=== PATIENT | female | born 1995 | race Caucasian/White ===

== ENCOUNTER 2017-03-29 14:02 | Inpatient (IN) | payer BC ==
[~2017-03-29] VITALS: Ht 160 cm; Wt 79.4 kg
--- NOTE | ~2017-03-29 | O ---
[place], [place] OPERATIVE NOTE NAME: IVETTE SARAH UNIT #: [id number] ROOM: 526 DOCTOR: GALEN SMYTH MD BIRTHDATE: [birth year] DOS: 03/30/2017 PREOPERATIVE DIAGNOSIS: Acute appendicitis. POSTOPERATIVE DIAGNOSIS: Acute appendicitis. PROCEDURE: Laparoscopic appendectomy. SURGEON: Galen Smyth MD JOURNEYMAN MACHINIST: MS3. ANESTHESIA: General anesthesia with endotracheal intubation. INDICATIONS: This is a 21-year-old female who presented to the Emergency Room with abdominal pain and a CAT scan that showed acute appendicitis. It was decided to take the patient to the operating room for a laparoscopic possible open appendectomy. The procedure and its complications were explained to the patient in detail preoperatively. Complications that were discussed included but were not limited to bleeding, infection, hematoma/seroma/abscess formation, damage to underlying vital structures, incisional hernia formation and prolonged pain. She agreed to proceed. DESCRIPTION OF PROCEDURE: After identifying the patient, the patient was brought to the operating suite and laid in the supine position. After time-out procedure was called, Perrin catheter was inserted into the urinary bladder. The parts were then painted and draped in the usual sterile fashion. The left upper extremity was tucked to the patient's side. An incision was made below the umbilicus in a curvilinear fashion. The skin and the subcutaneous tissue were incised and the fascia was incised vertically. The peritoneum was opened and a 12 mm Rodney port was introduced into the peritoneal cavity. A pneumoperitoneum was created. Under direct vision, a left lower quadrant and suprapubic incision was made and appropriate sized ports were introduced. The patient was placed in a Trendelenburg, right side up position. The appendix was found to be encased within the omentum and this was away from the appendix with the help of blunt dissection. After careful dissection was completed, the appendix was stapled across with the help of an Endo BERTO/vascular stapler and the appendix was then placed in an EndoCatch bag and removed from the peritoneal cavity and sent for histopathological diagnosis. Thereafter, hemostasis was confirmed. Fluid around the pelvis was sucked away and again hemostasis was confirmed. After that was done, the suprapubic and the left lower quadrant ports were removed under direct vision and there was no bleeding seen. The umbilical port was also removed. Thereafter, the fascial suture was taken with the help of 0 Vicryl and the skin edges were infiltrated with 1% plain lidocaine and approximated with the help of 4-0 Vicryl in a subcuticular running fashion. The Perrin catheter was removed. Dressings were placed and the patient was extubated uneventfully and brought back to the recovery room in stable fashion. There were no complications. Dr. Galen Smyth, the attending surgeon, was present throughout the operating case. [place], [place] OPERATIVE NOTE NAME: IVETTE SARAH UNIT #: [id number] ROOM: 526 DOCTOR: GALEN SMYTH MD BIRTHDATE: [birth year] Galen Smyth MD CM:OPRECORD:OPERATIVE NOTE [id number] GALEN SMYTH MD 03/30/17 0921 interface
[2017-03-29 14:32] VITALS: BP 136/68
[2017-03-29 15:32] LABS: BASO % 0.2 % (0.0-1.0); HEMOGLOBIN 13.7 g/dl (12.0-16.0); LYMPH # 2.5 10*3/uL (1.3-4.4); LYMPH % 12.9 % (27.0-41.0); MEAN CELL VOLUME 85.1 fl (81.0-99.0); MEAN CORPUSCULAR HGB 28.4 pg (27.0-31.0); MEAN CORPUSCULAR HGB CONC 33.4 g/dl (33.0-37.0); MEAN PLATELET VOLUME 10.2 fl (9.6-12.3); MONO # 1.1 10*3/uL (0.1-1.0); MONO % 5.9 % (3.0-9.0); NEUT # 15.4 10*3/uL (2.3-7.9); NEUT % 80.6 % (47.0-73.0); PLATELET COUNT AUTOMATED 306 10*3/uL (130-400); RED BLOOD COUNT 4.82 10*6/uL (4.10-5.10); RED CELL DISTRI WIDTH 12.2 % (0-14.5)
[2017-03-29 15:42] LABS: ACT PARTIAL THROMBO TIME 22.5 SECONDS (20.8-31.5)
[2017-03-29 15:47] LABS: ALBUMIN 3.5 gm/dl (3.1-4.5); ALKALINE PHOSPHATASE 67 U/L (45-117); BETA-HCG, QUANT < 1.0 mIU/mL (1-3); BUN 10 mg/dl (7-24); CHLORIDE 99 mmol/L (98-107); CREATININE 0.67 mg/dL (0.55-1.02); LIPASE 126 U/L (73-393); POTASSIUM 3.9 mmol/L (3.5-5.1); SGOT/AST 10 IU/L (3-35); SGPT/ALT 16 U/L (12-78); SODIUM 135 mmol/L (136-145); TOTAL PROTEIN 8.5 gm/dL (6.4-8.2); TROPONIN I < 0.015 ng/ml (<0.045)
[2017-03-29 16:00] VITALS: BP 139/72
--- NOTE | 2017-03-29 16:33 | NUR ---
PAIN NEARLY RESOLVED NOW AFTER DILAUDID DOSING.
[2017-03-29 16:50] LABS: BILIRUBIN NEGATIVE (NEGATIVE); BLOOD NEGATIVE (NEGATIVE); CLARITY CLOUDY (CLEAR); COLOR YELLOW (YELLOW); GLUCOSE NEGATIVE (NEGATIVE); KETONE 2+ (NEGATIVE); LEUKO ESTERASE NEGATIVE (NEGATIVE); NITRITE NEGATIVE (NEGATIVE); SPECIFIC GRAVITY >= 1.030 (1.005-1.030); UROBILINOGEN 0.2 E.U./dl (0.2-1.0)
[2017-03-29 17:20] LABS: BACTERIA 2+; EPITHELIAL CELLS 16-20; MUCOUS TRACE; RBC 0-2 rbc/hpf (0-2)
--- NOTE | 2017-03-29 18:00 | NUR ---
PAIN RETURNS, NEW PAIN MED ORDER PENDING.
--- NOTE | 2017-03-29 18:02 | NUR ---
BRITTANY STOP TIME WILL BE 7953
--- NOTE | 2017-03-29 18:20 | NUR ---
DILAUDID 1MG DOSE STOP TIME IS NOW
[2017-03-29 18:30] VITALS: BP 139/72
--- NOTE | 2017-03-29 18:37 | NUR ---
BED ASSIGNED 526. AWAITING OPPORTUNITY TO CALL NURSE REPORT TO [facility] [place].
--- NOTE | 2017-03-29 18:44 | NUR ---
SURGEON HERE FOR CONSULT, SPEAKS WITH DR JUAREZ. PT'S PAIN IMPROVED WITH LAST DOSE DILAUDID.
--- NOTE | 2017-03-29 19:53 | NUR ---
REPORT GIVEN TO CHELE VIRAMONTES
[2017-03-29 20:05] VITALS: BP 131/73
--- NOTE | 2017-03-29 20:35 | NUR ---
PATIENT MEDICATED WITH PRN MORPHINE FOR ABDOMINAL PAIN WILL REASSESS FOR EFFECTIVENESS OF MEDICATION
--- NOTE | 2017-03-29 21:04 | NUR ---
PATIENT ADMITTED TO FLOOR MEDICATED WITH MORPHINE FAMILY IN ROOM
[2017-03-30] VITALS (10 sets, daily range): BP systolic 110–130; BP diastolic 58–75
[2017-03-30 05:59] LABS: BASO % 0.2 % (0.0-1.0); EOS % 0.2 % (1.0-4.0); HEMATOCRIT 34.9 % (37.0-47.0); HEMOGLOBIN 11.5 g/dl (12.0-16.0); MEAN CORPUSCULAR HGB 28.7 pg (27.0-31.0); MEAN PLATELET VOLUME 10.1 fl (9.6-12.3); MONO # 0.9 10*3/uL (0.1-1.0); MONO % 6.6 % (3.0-9.0); NEUT % 69.5 % (47.0-73.0); PLATELET COUNT AUTOMATED 230 10*3/uL (130-400); RED BLOOD COUNT 4.01 10*6/uL (4.10-5.10); RED CELL DISTRI WIDTH 12.6 % (0-14.5); WHITE BLOOD COUNT 12.9 10*3/uL (4.8-10.8)
[2017-03-30 06:16] LABS: ALBUMIN 2.7 gm/dl (3.1-4.5); ALKALINE PHOSPHATASE 51 U/L (45-117); BUN 8 mg/dl (7-24); CHLORIDE 106 mmol/L (98-107); CREATININE 0.67 mg/dL (0.55-1.02); POTASSIUM 3.4 mmol/L (3.5-5.1); SGOT/AST 8 IU/L (3-35); SGPT/ALT 12 U/L (12-78); SODIUM 139 mmol/L (136-145); TOTAL PROTEIN 6.6 gm/dL (6.4-8.2)
[2017-03-30 06:36] LABS: ACT PARTIAL THROMBO TIME 25.7 SECONDS (20.8-31.5)
[2017-03-30 06:39] LABS: FREE T4 1.16 ng/dl (0.76-1.46); MAGNESIUM 2.2 mg/dL (1.5-2.1); PHOSPHOROUS 2.8 mg/dL (2.5-4.9)
[2017-03-30 06:45] LABS: THYROID STIM HORMONE (HS) 2.69 uIU/ml (0.358-4.75)
[2017-03-30 07:47] LABS: VITAMIN D, 25-HYDROXY 7.4 ng/mL (30-100)
--- NOTE | 2017-03-30 09:00 | NUR ---
case managment attempted to visit with patient, patient was out of room for surgery, will see at a later time
[2017-03-30] MEDS ORDERED: VITAMIN D5000 UNI1 PO (14:48)
--- NOTE | 2017-03-30 15:20 | NUR ---
PT REQUESTED AND GIVEN NORCO FOR C/O ABD PAIN . PT RATES PAIN 5/10. WILL MONITOR FAMILY AT BEDSIDE
--- NOTE | 2017-03-30 16:32 | NUR ---
PT STATES THAT VERNELLCO HELPED. FAMILY AT BEDSIDE
--- NOTE | 2017-03-30 16:32 | NUR ---
Discharge instructions reviewed with patient/family. Patient receptive and verbalizes understanding. Follow-up care arranged. Written instructions given to patient/family. VI HOFFMAN
== END 2017-03-30 16:32 | disposition home or self-care (01) | DRG 853 ==
LOC: ED 14:02 → EDHOLD 17:50 → 5E 17:50
PROVIDERS: Internal Medicine; Student in an Organized Health Care Education/Training Program; Surgery; ADMIT Internal Medicine
PROC: 0DTJ4ZZ Resection of Appendix, Percutaneous Endoscopic Approach (ICD-10-PCS; principal; 2017-03-30)
DX: A41.9 Sepsis, unspecified organism (principal); E43 Unspecified severe protein-calorie malnutrition; E87.1 Hypo-osmolality and hyponatremia; K35.80 Unspecified acute appendicitis; E66.9 Obesity, unspecified; E87.6 Hypokalemia; E83.41 Hypermagnesemia; E55.9 Vitamin D deficiency, unspecified; Z68.30 Body mass index [BMI] 30.0-30.9, adult

== ENCOUNTER → 2017-12-22 | Outpatient (CLI) | payer BC ==
[~2017-12-22] MED LIST: VITAMIN D5000 UNI1 PO
== END | disposition home or self-care (01) ==
LOC: US 00:42 → LAB 00:42 → US 13:30
DX: N92.6 Irregular menstruation, unspecified (principal); R10.13 Epigastric pain; R10.2 Pelvic and perineal pain

== ENCOUNTER → 2018-01-02 | Outpatient (CLI) | payer BC ==
[2018-01-03 14:09] LABS: VARICELLA-ZOSTER IGG 096206 1466 index (Immune >165)
[2018-01-03 15:04] LABS: VARICELLA-ZOSTER IGM AB <0.91 index (0.00-0.90)
== END | disposition home or self-care (01) ==
LOC: LAB 09:45
PROVIDERS: Family Medicine Adult Medicine
DX: Z01.84 Encounter for antibody response examination (principal)

== ENCOUNTER → 2018-10-06 | Outpatient (CLI) | payer BC ==
[2018-10-06 12:45] LABS: ALBUMIN 3.3 gm/dl (3.1-4.5); ALKALINE PHOSPHATASE 65 U/L (45-117); BUN 11 mg/dl (7-24); CHLORIDE 104 mmol/L (98-107); CHOLESTEROL 198 mg/dL (<200); CREATININE 0.66 mg/dL (0.55-1.02); HDL CHOLESTEROL 55 mg/dl (40-60); LDL CHOLESTEROL 112 mg/dL (9-159); POTASSIUM 3.8 mmol/L (3.5-5.1); SGOT/AST 11 IU/L (3-35); SGPT/ALT 18 U/L (12-78); SODIUM 136 mmol/L (136-145); TOTAL PROTEIN 8.2 gm/dL (6.4-8.2); TRIGLYCERIDES 154 mg/dl (<150); VLDL CHOLESTEROL 31 mg/dL (6-40)
== END | disposition home or self-care (01) ==
LOC: LAB 11:57
PROVIDERS: Nurse Practitioner
DX: E78.1 Pure hyperglyceridemia (principal); E55.9 Vitamin D deficiency, unspecified; J06.9 Acute upper respiratory infection, unspecified